=== PATIENT | female | born 1975 | race Caucasian/White ===

== ENCOUNTER 2019-01-03 20:41 | Emergency (ER) | payer SELFPAY ==
[~2019-01-03] VITALS: Wt 123.8 kg
[2019-01-03 21:49] LABS: BILIRUBIN NEGATIVE (NEGATIVE); BLOOD TRACE-LYSED (NEGATIVE); CLARITY CLOUDY (CLEAR); COLOR YELLOW (YELLOW); GLUCOSE NEGATIVE (NEGATIVE); KETONE NEGATIVE (NEGATIVE); LEUKO ESTERASE 2+ (NEGATIVE); NITRITE NEGATIVE (NEGATIVE); SPECIFIC GRAVITY 1.015 (1.005-1.030); UROBILINOGEN 0.2 E.U./dl (0.2-1.0)
[2019-01-03 21:50] LABS: BASO # 0.1 10*3/uL (0.0-0.1); BASO % 0.6 % (0.0-1.0); EOS # 0.2 10*3/uL (0.0-0.4); EOS % 2.2 % (1.0-4.0); HEMATOCRIT 35.5 % (37.0-47.0); HEMOGLOBIN 11.3 g/dl (12.0-16.0); LYMPH # 2.6 10*3/uL (1.3-4.4); LYMPH % 31.7 % (27.0-41.0); MEAN CELL VOLUME 86.2 fl (81.0-99.0); MEAN CORPUSCULAR HGB 27.4 pg (27.0-31.0); MEAN CORPUSCULAR HGB CONC 31.8 g/dl (33.0-37.0); MEAN PLATELET VOLUME 10.4 fl (9.6-12.3); MONO # 0.7 10*3/uL (0.1-1.0); MONO % 7.9 % (3.0-9.0); NEUT # 4.7 10*3/uL (2.3-7.9); NEUT % 57.4 % (47.0-73.0); PLATELET COUNT AUTOMATED 238 10*3/uL (130-400); RED BLOOD COUNT 4.12 10*6/uL (4.10-5.10); RED CELL DISTRI WIDTH 15.3 % (0-14.5); WHITE BLOOD COUNT 8.3 10*3/uL (4.8-10.8)
[2019-01-03 21:57] LABS: BACTERIA 1+
[2019-01-03 22:19] LABS: ALBUMIN 3.6 gm/dl (3.1-4.5); ALKALINE PHOSPHATASE 64 U/L (45-117); BUN 13 mg/dl (7-24); CHLORIDE 107 mmol/L (98-107); CREATININE 0.81 mg/dL (0.55-1.02); LIPASE 172 U/L (73-393); POTASSIUM 3.5 mmol/L (3.5-5.1); SGOT/AST 9 IU/L (3-35); SGPT/ALT 16 U/L (12-78); SODIUM 137 mmol/L (136-145); TOTAL PROTEIN 7.8 gm/dL (6.4-8.2)
[2019-01-03] MEDS ORDERED: IBUPROFEN600 MG PO (23:57)
[2019-01-04 00:03] VITALS: BP 135/65
== END 2019-01-04 00:33 | disposition home or self-care (01) ==
LOC: ED 20:41
PROVIDERS: Physician Assistant
DX: K80.50 Calculus of bile duct without cholangitis or cholecystitis without obstruction (principal); Z88.6 Allergy status to analgesic agent

== ENCOUNTER 2019-12-16 19:30 | Emergency (ER) | payer SELFPAY ==
[~2019-12-16] VITALS: Ht 160 cm; Wt 123.8 kg
[~2019-12-16 19:30] MED LIST: IBUPROFEN600 MG PO
[2019-12-16] MEDS ORDERED: CEPHALEXIN500 M1 PO (20:23)
[2019-12-16] MEDS ORDERED: LIDEX 0.05% CRE15 GM T (20:23)
[2019-12-16 20:30] VITALS: BP 123/59
== END 2019-12-16 20:25 | disposition home or self-care (01) ==
LOC: ED 19:30
DX: L03.116 Cellulitis of left lower limb (principal); F17.200 Nicotine dependence, unspecified, uncomplicated

== ENCOUNTER 2020-07-24 12:40 | Emergency (ER) | payer SELFPAY ==
[~2020-07-24] VITALS: Ht 160 cm; Wt 130.2 kg
[~2020-07-24 12:40] MED LIST changes: +CEPHALEXIN500 M1 PO; +LIDEX 0.05% CRE15 GM T
[2020-07-24 13:01] VITALS: BP 120/57
[2020-07-24 13:33] LABS: BASO % 0.3 % (0.0-1.0); EOS # 0.1 10*3/uL (0.0-0.4); EOS % 1.6 % (1.0-4.0); HEMATOCRIT 33.9 % (37.0-47.0); LYMPH # 2.1 10*3/uL (1.3-4.4); LYMPH % 23.6 % (27.0-41.0); MEAN CELL VOLUME 78.3 fl (81.0-99.0); MEAN CORPUSCULAR HGB CONC 30.7 g/dl (33.0-37.0); MEAN PLATELET VOLUME 9.4 fl (9.6-12.3); MONO # 0.7 10*3/uL (0.1-1.0); MONO % 7.8 % (3.0-9.0); NEUT # 5.9 10*3/uL (2.3-7.9); NEUT % 66.5 % (47.0-73.0); PLATELET COUNT AUTOMATED 304 10*3/uL (130-400); RED BLOOD COUNT 4.33 10*6/uL (4.10-5.10); RED CELL DISTRI WIDTH 16.3 % (0-14.5); WHITE BLOOD COUNT 8.8 10*3/uL (4.8-10.8)
[2020-07-24 13:45] LABS: BUN 14 mg/dl (7-24); CHLORIDE 111 mmol/L (98-107); CREATININE 0.93 mg/dL (0.55-1.02); POTASSIUM 3.6 mmol/L (3.5-5.1); SODIUM 141 mmol/L (136-145)
[2020-07-24 13:49] LABS: BILIRUBIN Negative (Negative); BLOOD Negative (Negative); CLARITY Cloudy (Clear); COLOR Dark Yellow (Yellow); GLUCOSE Negative (Negative); KETONE Trace (Negative); LEUKO ESTERASE 1+ (Negative); NITRITE Negative (Negative); SPECIFIC GRAVITY >= 1.030 (1.001-1.030)
[2020-07-24 14:12] LABS: BACTERIA 4+; EPITHELIAL CELLS 21-30
[2020-07-24] MEDS ORDERED: GOOD NEIGHBOR M25 M1 PO (15:07)
== END 2020-07-24 15:37 | disposition home or self-care (01) ==
LOC: ED 12:40
PROVIDERS: Emergency Medicine
DX: H81.10 Benign paroxysmal vertigo, unspecified ear (principal); E66.01 Morbid (severe) obesity due to excess calories; F17.200 Nicotine dependence, unspecified, uncomplicated; Z98.51 Tubal ligation status; Z88.6 Allergy status to analgesic agent

== ENCOUNTER 2020-10-08 11:00 | Emergency (ER) | payer SELFPAY ==
[~2020-10-08 11:00] MED LIST changes: +GOOD NEIGHBOR M25 M1 PO
[2020-10-08 11:04] VITALS: BP 119/62
[2020-10-08] MEDS ORDERED: PROVENTIL HFA6.7 GM INH (13:50)
== END 2020-10-08 13:56 | disposition home or self-care (01) ==
LOC: ED 11:00
DX: J06.9 Acute upper respiratory infection, unspecified (principal); Z20.822 Contact with and (suspected) exposure to COVID-19; F17.200 Nicotine dependence, unspecified, uncomplicated; Z98.51 Tubal ligation status; Z88.6 Allergy status to analgesic agent

== ENCOUNTER 2020-12-15 16:15 | Emergency (ER) | payer SELFPAY ==
[~2020-12-15] VITALS: Ht 160 cm; Wt 134.7 kg
[~2020-12-15 16:15] MED LIST changes: +PROVENTIL HFA6.7 GM INH
[2020-12-15 16:22] VITALS: BP 114/64
[2020-12-15] MEDS ORDERED: VALTREX1000 MG PO (16:32)
== END 2020-12-15 16:50 | disposition home or self-care (01) ==
LOC: ED 16:15
DX: B02.9 Zoster without complications (principal); Z88.8 Allergy status to other drugs, medicaments and biological substances; Z79.899 Other long term (current) drug therapy; Z79.2 Long term (current) use of antibiotics; Z98.51 Tubal ligation status

== ENCOUNTER 2021-03-16 14:09 | Emergency (ER) | payer SELFPAY ==
[~2021-03-16] VITALS: Ht 160 cm; Wt 124.3 kg
[~2021-03-16 14:09] MED LIST changes: +VALTREX1000 MG PO
[2021-03-16 14:25] VITALS: BP 114/44
== END 2021-03-16 20:30 | disposition left against medical advice (07) ==
LOC: ED 14:09
DX: J02.9 Acute pharyngitis, unspecified (principal); Z53.21 Procedure and treatment not carried out due to patient leaving prior to being seen by health care provider

== ENCOUNTER 2021-08-29 16:58 | Emergency (ER) | payer SELFPAY ==
[~2021-08-29] VITALS: Wt 128.4 kg
[2021-08-29 17:32] VITALS: BP 123/57
[2021-08-29 17:33] LABS: BASO % 0.2 % (0.0-1.0); EOS # 0.2 10*3/uL (0.0-0.4); EOS % 1.8 % (1.0-4.0); HEMATOCRIT 31.1 % (37.0-47.0); LYMPH % 24.5 % (27.0-41.0); MEAN CELL VOLUME 75.1 fl (81.0-99.0); MEAN CORPUSCULAR HGB 22.7 pg (27.0-31.0); MEAN CORPUSCULAR HGB CONC 30.2 g/dl (33.0-37.0); MEAN PLATELET VOLUME 9.8 fl (9.6-12.3); MONO # 0.7 10*3/uL (0.1-1.0); MONO % 7.9 % (3.0-9.0); NEUT # 5.4 10*3/uL (2.3-7.9); NEUT % 65.4 % (47.0-73.0); PLATELET COUNT AUTOMATED 296 10*3/uL (130-400); RED BLOOD COUNT 4.14 10*6/uL (4.10-5.10); RED CELL DISTRI WIDTH 18.8 % (0-14.5); WHITE BLOOD COUNT 8.3 10*3/uL (4.8-10.8)
[2021-08-29 17:45] LABS: ACT PARTIAL THROMBO TIME 27.2 SECONDS (20.0-32.1); INTERNATIONAL NORM RATIO 0.9 (2.0-3.5)
[2021-08-29 17:49] LABS: ALKALINE PHOSPHATASE 63 U/L (45-117); BUN 10 mg/dl (7-24); CHLORIDE 110 mmol/L (98-107); CREATININE 0.79 mg/dL (0.55-1.02); POTASSIUM 3.8 mmol/L (3.5-5.1); SGOT/AST 14 IU/L (3-35); SGPT/ALT 21 U/L (12-78); SODIUM 139 mmol/L (136-145); TOTAL PROTEIN 7.3 gm/dL (6.4-8.2)
[2021-08-29 18:04] LABS: IRON 12 ug/dL (50-170); TOTAL IRON BINDING CAPACITY 391 ug/dl (250-450)
[2021-08-29] MEDS ORDERED: FERRIMIN 150456 MG PO (18:36)
[2021-08-29] MEDS ORDERED: VITAMIN B122500 MC1 PO (18:45)
== END 2021-08-29 18:39 | disposition home or self-care (01) ==
LOC: ED 16:58
PROVIDERS: Emergency Medicine
DX: R42 Dizziness and giddiness (principal); Z20.822 Contact with and (suspected) exposure to COVID-19; E53.8 Deficiency of other specified B group vitamins; E61.1 Iron deficiency; Z88.8 Allergy status to other drugs, medicaments and biological substances; Z98.51 Tubal ligation status

== ENCOUNTER 2022-08-22 11:38 | Emergency (ER) | payer SELFPAY ==
[~2022-08-22] VITALS: Ht 160 cm; Wt 124.7 kg
[~2022-08-22 11:38] MED LIST changes: +FERRIMIN 150456 MG PO; +VITAMIN B122500 MC1 PO
[2022-08-22 12:05] VITALS: BP 142/61
== END 2022-08-22 14:12 | disposition home or self-care (01) ==
LOC: ED 11:38
DX: S86.911A Strain of unspecified muscle(s) and tendon(s) at lower leg level, right leg, initial encounter (principal); Z88.8 Allergy status to other drugs, medicaments and biological substances; Z98.51 Tubal ligation status; X50.9XXA Other and unspecified overexertion or strenuous movements or postures, initial encounter; Y93.89 Activity, other specified; Y92.89 Other specified places as the place of occurrence of the external cause; Y99.8 Other external cause status

== ENCOUNTER 2023-03-30 16:34 | Emergency (ER) | payer SELFPAY ==
[~2023-03-30] VITALS: Ht 160 cm; Wt 136.1 kg
[2023-03-30 17:00] VITALS: BP 139/71
[2023-03-30] MEDS ORDERED: MEDROL DOSEPAK4 MG PO (19:13)
== END 2023-03-30 19:46 | disposition home or self-care (01) ==
LOC: ED 16:34
DX: J06.9 Acute upper respiratory infection, unspecified (principal); R19.7 Diarrhea, unspecified; H92.03 Otalgia, bilateral; Z88.8 Allergy status to other drugs, medicaments and biological substances; Z98.51 Tubal ligation status; F17.210 Nicotine dependence, cigarettes, uncomplicated; Z20.822 Contact with and (suspected) exposure to COVID-19

== ENCOUNTER 2023-12-02 01:22 | Emergency (ER) | payer OTHER ==
[~2023-12-02] VITALS: Ht 160 cm; Wt 136.1 kg
[~2023-12-02 01:22] MED LIST changes: +MEDROL DOSEPAK4 MG PO
[2023-12-02 01:30] VITALS: BP 123/74
[2023-12-02] MEDS ORDERED: AVPAK AZITHROM250 MG PO (03:11)
[2023-12-02] MEDS ORDERED: GUAIFENESIN200 MG PO (03:11)
== END 2023-12-02 03:29 | disposition home or self-care (01) ==
LOC: ED 01:22
DX: J40 Bronchitis, not specified as acute or chronic (principal); Z20.822 Contact with and (suspected) exposure to COVID-19; F17.200 Nicotine dependence, unspecified, uncomplicated; Z88.5 Allergy status to narcotic agent; Z98.51 Tubal ligation status

== ENCOUNTER 2024-02-13 21:03 | Emergency (ER) | payer OTHER ==
[~2024-02-13] VITALS: Ht 160 cm; Wt 138.3 kg
[2024-02-13 21:03] VITALS: BP 128/64
[~2024-02-13 21:03] MED LIST changes: +AVPAK AZITHROM250 MG PO; +GUAIFENESIN200 MG PO
[2024-02-13] MEDS ORDERED: methylPREDNISolone acetate 40 MG/ML VIAL IM ONE (21:20)
[2024-02-13] MEDS ORDERED: Ketorolac Tromethamine 30 MG/ML VIAL IM ONE (21:20)
[2024-02-13 21:43] LABS: BILIRUBIN 1+ (Negative); BLOOD Negative (Negative); CLARITY Cloudy (Clear); COLOR Dark Yellow (Yellow); GLUCOSE Negative (Negative); KETONE Trace (Negative); LEUKO ESTERASE 1+ (Negative); NITRITE Negative (Negative); PH 6.5 (4.5-8.0); SPECIFIC GRAVITY >= 1.030 (1.001-1.030)
[2024-02-13 21:59] LABS: BACTERIA 1+; MUCOUS 2+
[2024-02-13] MEDS ORDERED: ZANAFLEX4 MG PO (22:44)
[2024-02-13] MEDS ORDERED: MEDROL DOSEPAK4 MG PO (22:44)
[2024-02-13] MEDS ORDERED: NAPROSYN500 MG PO (22:44)
== END 2024-02-13 23:06 | disposition home or self-care (01) ==
LOC: ED 21:03
PROVIDERS: Nurse Practitioner Family
DX: S39.012A Strain of muscle, fascia and tendon of lower back, initial encounter (principal); F17.200 Nicotine dependence, unspecified, uncomplicated; Z88.5 Allergy status to narcotic agent; Z98.51 Tubal ligation status; Z79.899 Other long term (current) drug therapy; X58.XXXA Exposure to other specified factors, initial encounter; Y93.89 Activity, other specified; Y92.89 Other specified places as the place of occurrence of the external cause; Y99.8 Other external cause status

== ENCOUNTER 2024-07-05 09:39 | Emergency (ER) | payer OTHER ==
[~2024-07-05] VITALS: Ht 160 cm; Wt 127.0 kg
[~2024-07-05 09:39] MED LIST changes: +NAPROSYN500 MG PO; +ZANAFLEX4 MG PO
[2024-07-05 09:53] VITALS: BP 143/62
[2024-07-05] MEDS ORDERED: Ondansetron Hydrochloride 4 MG TAB SL ONE (10:05)
[2024-07-05 10:19] LABS: BASO % 0.3 % (0.0-1.0); EOS # 0.1 10*3/uL (0.0-0.4); EOS % 1.5 % (1.0-4.0); HEMATOCRIT 37.3 % (37.0-47.0); MEAN CELL VOLUME 79.5 fl (81.0-99.0); MEAN CORPUSCULAR HGB 23.9 pg (27.0-31.0); MEAN PLATELET VOLUME 9.4 fl (9.6-12.3); MONO # 0.5 10*3/uL (0.1-1.0); MONO % 7.3 % (3.0-9.0); NEUT # 4.9 10*3/uL (2.3-7.9); NEUT % 67.7 % (47.0-73.0); PLATELET COUNT AUTOMATED 308 10*3/uL (130-400); RED BLOOD COUNT 4.69 10*6/uL (4.10-5.10); RED CELL DISTRI WIDTH 17.1 % (0-14.5); WHITE BLOOD COUNT 7.3 10*3/uL (4.8-10.8)
[2024-07-05 10:43] LABS: ALKALINE PHOSPHATASE 109 U/L (46-116); BUN 9 mg/dl (9-23); CHLORIDE 102 mmol/L (98-107); POTASSIUM 3.7 mmol/L (3.4-5.1); SGPT/ALT 34 U/L (5-49)
[2024-07-05 10:56] LABS: BILIRUBIN Negative (Negative); BLOOD Negative (Negative); CLARITY Cloudy (Clear); COLOR Yellow (Yellow); GLUCOSE Negative (Negative); KETONE Trace (Negative); LEUKO ESTERASE Negative (Negative); NITRITE Negative (Negative); PH 6.5 (4.5-8.0)
[2024-07-05 11:11] LABS: BACTERIA TRACE; EPITHELIAL CELLS TNTC
[2024-07-05 11:12] LABS: RBC 0-2 rbc/hpf (0-2); YEAST TRACE
[2024-07-05] MEDS ORDERED: Ondansetron4 MG PO (11:25)
== END 2024-07-05 11:27 | disposition home or self-care (01) ==
LOC: ED 09:39
PROVIDERS: Nurse Practitioner Family
DX: N21.0 Calculus in bladder (principal); R11.2 Nausea with vomiting, unspecified; Z88.8 Allergy status to other drugs, medicaments and biological substances

== ENCOUNTER 2024-09-25 14:45 | Inpatient (IN) | payer SELFPAY ==
[~2024-09-25] VITALS: Ht 160 cm; Wt 127.2 kg
[~2024-09-25 14:45] MED LIST changes: +Ondansetron4 MG PO
[2024-09-25 15:05] VITALS: BP 115/67
[2024-09-25] MEDS ORDERED: Ondansetron Hydrochloride 4 MG/2 ML VIAL IV ONE (15:15)
[2024-09-25] MEDS ORDERED: Ketorolac Tromethamine 15 MG/ML VIAL IV ONE (15:15)
[2024-09-25] MEDS ORDERED: SODIUM CHLORIDE 0.9% 1,000 ML IV ONE (15:15)
[2024-09-25] MEDS ORDERED: MORPHINE Sulfate 2 MG/ML SYR IV ONE (15:15)
[2024-09-25 15:27] LABS: BASO % 0.2 % (0.0-1.0); EOS # 0.1 10*3/uL (0.0-0.4); MEAN CELL VOLUME 81.1 fl (81.0-99.0); MEAN CORPUSCULAR HGB 25.4 pg (27.0-31.0); MEAN CORPUSCULAR HGB CONC 31.4 g/dl (33.0-37.0); MONO # 0.6 10*3/uL (0.1-1.0); MONO % 7.2 % (3.0-9.0); NEUT % 74.8 % (47.0-73.0); PLATELET COUNT AUTOMATED 249 10*3/uL (130-400); RED BLOOD COUNT 4.56 10*6/uL (4.10-5.10)
[2024-09-25 16:04] LABS: ALKALINE PHOSPHATASE 312 U/L (46-116); BUN 8 mg/dl (9-23); CHLORIDE 104 mmol/L (98-107); LIPASE 109 U/L (12-53); SGPT/ALT 63 U/L (5-49); TOTAL PROTEIN 7.6 gm/dL (6.0-8.0)
[2024-09-25] MEDS ORDERED: Piperacillin Sodium/Tazobact 50 ML IV ONE (16:55)
[2024-09-25] MEDS ORDERED: Acetaminophen/Hydrocodone 5 MG/325 MG TABLET PO PRN (18:00)
[2024-09-25] MEDS ORDERED: MORPHINE Sulfate 2 MG/ML SYR IV PRN (18:00)
[2024-09-25] MEDS ORDERED: BISACODYL 10 MG SUPP R PRN (18:00)
[2024-09-25] MEDS ORDERED: BISACODYL 5 MG TAB PO PRN (18:00)
[2024-09-25] MEDS ORDERED: Magnesium Hydroxide 30 ML UDC PO PRN (18:00)
[2024-09-25] MEDS ORDERED: Ondansetron Hydrochloride 4 MG/2 ML VIAL IV PRN (18:00)
[2024-09-25] MEDS ORDERED: SODIUM CHLORIDE 0.9% 1,000 ML IV SCH (18:10)
[2024-09-25 20:23] VITALS: BP 111/31
[2024-09-25 23:00] VITALS: BP 116/49
[2024-09-26] VITALS (12 sets, daily range): BP systolic 96–114; BP diastolic 37–82
[2024-09-26] MEDS ORDERED: Piperacillin Sodium/Tazobact 50 ML IV SCH
[2024-09-26] MEDS ORDERED: Nicotine 14 MG PATCH T SCH (03:30)
[2024-09-26 06:57] LABS: BASO % 0.6 % (0.0-1.0); EOS # 0.2 10*3/uL (0.0-0.4); EOS % 2.4 % (1.0-4.0); HEMATOCRIT 34.2 % (37.0-47.0); MEAN CELL VOLUME 83.2 fl (81.0-99.0); MEAN CORPUSCULAR HGB 25.3 pg (27.0-31.0); MEAN CORPUSCULAR HGB CONC 30.4 g/dl (33.0-37.0); MEAN PLATELET VOLUME 10.3 fl (9.6-12.3); MONO # 0.6 10*3/uL (0.1-1.0); NEUT % 59.9 % (47.0-73.0); PLATELET COUNT AUTOMATED 218 10*3/uL (130-400); RED BLOOD COUNT 4.11 10*6/uL (4.10-5.10); RED CELL DISTRI WIDTH 17.2 % (0-14.5); WHITE BLOOD COUNT 6.6 10*3/uL (4.8-10.8)
[2024-09-26 07:20] LABS: ALKALINE PHOSPHATASE 280 U/L (46-116); BUN 11 mg/dl (9-23); CHLORIDE 108 mmol/L (98-107); CHOLESTEROL 141 mg/dL (<200); FREE T4 0.65 ng/dl (0.89-1.76); LDL CHOLESTEROL 77 mg/dL (9-159); POTASSIUM 4.3 mmol/L (3.4-5.1); SGPT/ALT 65 U/L (5-49); TOTAL PROTEIN 6.4 gm/dL (6.0-8.0); TRIGLYCERIDES 85 mg/dl (<150)
[2024-09-26] MEDS ORDERED: ACETAMINOPHEN 100 ML IV ONE ×2 (09:25→12:57)
[2024-09-26] MEDS ORDERED: SODIUM CHLORIDE 0.9% 100 ML IV ONE (12:57)
[2024-09-26] MEDS ORDERED: Lactated Ringer's Solution 1,000 ML IV ONE (12:57)
[2024-09-26] MEDS ORDERED: BUPivacaine 0.5% 30 ML IV ONE (13:05)
[2024-09-26] MEDS ORDERED: SEVOFLURANE 250 ML BOT INH ONE (15:45)
[2024-09-26] MEDS ORDERED: dexmedeTOMIDine HCL 200 MCG/2 ML VIAL IV ONE (15:45)
[2024-09-26] MEDS ORDERED: SUGAMMADEX SODIUM 200 MG/2 ML VIAL IV ONE (15:45)
[2024-09-26] MEDS ORDERED: Ketamine Hydrochloride 50 MG/5 ML SYRINGE IV ONE (15:45)
[2024-09-26] MEDS ORDERED: Lidocaine Hydrochloride 5 ML VIAL IV ONE (15:45)
[2024-09-26] MEDS ORDERED: PROPOFOL 200 MG/20 ML VIAL IV ONE (15:45)
[2024-09-26] MEDS ORDERED: Ondansetron Hydrochloride 4 MG/2 ML VIAL IV ONE (15:45)
[2024-09-26] MEDS ORDERED: Ketorolac Tromethamine 30 MG/ML VIAL IV ONE (15:45)
[2024-09-26] MEDS ORDERED: fentaNYL CITRATE 100 MCG/2 ML VIAL IV ONE (15:45)
[2024-09-26] MEDS ORDERED: Dexamethasone Sodium Phospha 20 MG/5 ML VIAL IV ONE (15:45)
[2024-09-26] MEDS ORDERED: Midazolam Hydrochloride 2 MG/2 ML VIAL IV ONE (15:45)
[2024-09-26] MEDS ORDERED: GLYCOPYRROLATE IN WATER/PF 0.4 MG/2 ML SYRINGE IV ONE (15:45)
[2024-09-26] MEDS ORDERED: ROCURONIUM BROMIDE 50 MG/5 ML SYRINGE IV ONE (15:45)
[2024-09-26 18:03] LABS: BILIRUBIN Negative (Negative); BLOOD Negative (Negative); CLARITY Clear (Clear); COLOR Yellow (Yellow); GLUCOSE Negative (Negative); KETONE Trace (Negative); LEUKO ESTERASE Negative (Negative); NITRITE Negative (Negative); SPECIFIC GRAVITY >= 1.030 (1.001-1.030); UROBILINOGEN 0.2 E.U./dl (0.0-1.0)
[2024-09-26 18:11] LABS: BACTERIA TRACE; EPITHELIAL CELLS 21-30
[2024-09-27] VITALS: BP 123/58
[2024-09-27 04:00] VITALS: BP 120/59
[2024-09-27] MEDS ORDERED: Benzocaine/Menthol 1 LOZ LOZENGE PO PRN (04:40)
[2024-09-27 06:13] LABS: BASO % 0.1 % (0.0-1.0); EOS % 0.1 % (1.0-4.0); HEMATOCRIT 34.5 % (37.0-47.0); MEAN CELL VOLUME 84.4 fl (81.0-99.0); MEAN CORPUSCULAR HGB 25.2 pg (27.0-31.0); MEAN CORPUSCULAR HGB CONC 29.9 g/dl (33.0-37.0); MEAN PLATELET VOLUME 11.1 fl (9.6-12.3); MONO # 0.5 10*3/uL (0.1-1.0); MONO % 6.2 % (3.0-9.0); NEUT # 6.1 10*3/uL (2.3-7.9); NEUT % 72.9 % (47.0-73.0); PLATELET COUNT AUTOMATED 228 10*3/uL (130-400); RED BLOOD COUNT 4.09 10*6/uL (4.10-5.10); RED CELL DISTRI WIDTH 17.4 % (0-14.5); WHITE BLOOD COUNT 8.3 10*3/uL (4.8-10.8)
[2024-09-27 06:28] LABS: ALKALINE PHOSPHATASE 244 U/L (46-116); BUN 6 mg/dl (9-23); CHLORIDE 105 mmol/L (98-107); POTASSIUM 3.9 mmol/L (3.4-5.1); SGPT/ALT 62 U/L (5-49); TOTAL PROTEIN 7.1 gm/dL (6.0-8.0)
[2024-09-27 08:00] VITALS: BP 105/72
[2024-09-27 12:00] VITALS: BP 119/50
[2024-09-27] MEDS ORDERED: HYDROCODONE-AC1 EAC1 PO (13:30)
== END 2024-09-27 13:56 | disposition home or self-care (01) | DRG 418 ==
LOC: ED 14:45 → 4E 17:03 → EDHOLD 17:03 → 4E 22:50
PROVIDERS: Emergency Medicine; Student in an Organized Health Care Education/Training Program; ADMIT Internal Medicine; ATTEND Internal Medicine
PROC: 0FT44ZZ Resection of Gallbladder, Percutaneous Endoscopic Approach (ICD-10-PCS; principal; 2024-09-26)
DX: K80.42 Calculus of bile duct with acute cholecystitis without obstruction (principal); Z68.42 Body mass index [BMI] 45.0-49.9, adult; R73.9 Hyperglycemia, unspecified; E66.01 Morbid (severe) obesity due to excess calories; R74.01 Elevation of levels of liver transaminase levels; F17.210 Nicotine dependence, cigarettes, uncomplicated; Z88.8 Allergy status to other drugs, medicaments and biological substances; Z80.8 Family history of malignant neoplasm of other organs or systems; Z71.6 Tobacco abuse counseling; G89.18 Other acute postprocedural pain